=== PATIENT | female | born 1985 | race Caucasian/White ===

== ENCOUNTER → 2021-08-24 11:15 | Outpatient (CLI) | payer OTHER ==
[~2021-08-24 11:15] MED LIST: AMOX1TAB12 PO
== END | disposition home or self-care (01) ==
LOC: PPH VACUNA 11:15
PROVIDERS: ATTEND Emergency Medicine Pediatric Emergency Medicine
DX: Z23 Encounter for immunization (principal)

== ENCOUNTER 2022-07-23 12:46 | Outpatient (CLI) | payer OTHER | END 2022-07-23 12:56 | disposition home or self-care (01) | LOC: PPH VACUNA 12:46 | PROVIDERS: ATTEND Emergency Medicine Pediatric Emergency Medicine | DX: Z23 Encounter for immunization (principal) ==